=== PATIENT | male | born 1945 | race Asian ===

== ENCOUNTER 2017-11-30 17:55 | Observation (INO) | payer MEDICARE, OTHER ==
[~2017-11-30] VITALS: Ht 172.7 cm; Wt 86.2 kg
[2017-11-30 19:01] LABS: Basophils # (auto) 0 uL; Basophils % (auto) 0.5 % (0.0-2.0); Eosinophils # (auto) 0.2 uL; Eosinophils % (auto) 2.8 % (0.0-7.0); Hematocrit 43.6 % (41.0-53.0); Hemoglobin 14.4 g/dL (13.5-17.5); Lymphocytes # (auto) 1.1 uL; Lymphocytes % (auto) 13.4 % (10.0-50.0); Mean Corpuscular Hgb Conc. 33.1 g/dL (32.0-36.0); Mean Corpuscular Volume 84.7 fL (80.0-100.0); Monocytes # (auto) 0.5 uL; Monocytes % (auto) 6.2 % (0.0-12.0); Neutrophils # (auto) 6.6 uL; Neutrophils % (auto) 77.1 % (37.0-80.0); Nucleated Red Blood Cells % 0.1 %; Platelet Count (auto) 151 10^3/uL (140-450); Red Blood Cells 5.15 10^6/uL (4.5-5.90); Red Cell Distribution Width 14.2 % (11.8-14.3); White Blood Cell 8.6 10^3/uL (4.4-10.8)
[2017-11-30 19:20] LABS: Alanine Aminotransferase 37 U/L (16-61); Albumin 3.7 g/dL (3.4-5.0); Anion Gap 8 (5-15); Aspartate Aminotransferase 23 U/L (15-37); BUN/Creatinine Ratio 19.3; Blood Urea Nitrogen 21 mg/dL (7-18); Calcium 8.1 mg/dL (8.5-10.1); Carbon Dioxide 26 mmol/L (21-32); Chloride 107 mmol/L (98-107); GFR African American 86 mL/min; GFR Non-African American 71 mL/min; Glucose 116 mg/dL (74-106); INR 0.94 (0.9-1.15); Magnesium 2.1 mg/dL (1.6-2.6); Partial Thromboplastin Time 26.6 sec (23.78-33.04); Potassium 3.7 mmol/L (3.5-5.1); Prothrombin Time 10.1 sec (9.27-12.13); Sodium 141 mmol/L (136-145)
[2017-11-30 19:25] LABS: Alkaline Phosphatase 75 U/L (45-117); Total Protein 7.8 g/dL (6.4-8.2)
[2017-11-30 21:34] LABS: Urine WBC None Seen /hpf (0 - 3)
[2017-11-30 21:37] VITALS: BP 151/90
[2017-11-30 21:44] LABS: Urine Bacteria NONE SEEN /hpf (None Seen); Urine Blood Negative /uL (Negative); Urine Mucus FEW (None Seen); Urine Specific Gravity 1.023 (1.001-1.035)
== END 2017-11-30 21:13 | disposition home or self-care (01) | DRG 552 ==
LOC: ER 17:55 → OVERFLOW 17:56 → ER 21:13
PROVIDERS: ADMIT Emergency Medicine; ATTEND Emergency Medicine
DX: S32.019A Unspecified fracture of first lumbar vertebra, initial encounter for closed fracture (principal); I10 Essential (primary) hypertension; E11.9 Type 2 diabetes mellitus without complications; E78.5 Hyperlipidemia, unspecified; N40.0 Benign prostatic hyperplasia without lower urinary tract symptoms; W01.0XXA Fall on same level from slipping, tripping and stumbling without subsequent striking against object, initial encounter; Y93.89 Activity, other specified; Y99.9 Unspecified external cause status; Y92.9 Unspecified place or not applicable
CPT/HCPCS: 36415; 74176; 80053; 81001; 83735; 84484; 85025; 85379; 85610; 85730; 93005; 99285; G0378